=== PATIENT | female | born 1980 | race Caucasian/White ===

== ENCOUNTER 2017-10-13 19:18 | Emergency (ER) | payer OTHER ==
[~2017-10-13 19:18] MED LIST: IBUP-238; PREN0.01
[2017-10-13] MEDS ORDERED: MECL-62 PO (20:42)
[2017-10-13] MEDS ORDERED: ZITHTAB PO (20:42)
--- NOTE | 2017-10-13 20:42 | PD ---
HPI Chief Complaint Dizziness and abdominal cramping for 1 day Date Seen: Oct 13, 2017 Time Seen: 20:33 Travel History International Travel<30 Days: No Contact w/Intl Traveler<30Days: No Known Affected Area: No History of Present Illness HPI 37-year-old at [address] Cochran for care who presents complaining of dizziness for the last day, like she can have trouble walking she feels like she is to hold onto the wall or to something which she walks in the some extent the room is spinning, she says she has had this before in . Her abdominal cramping is minimal, was no bleeding or leakage of fluid, heart tones 140s, no contractions seen Weeks Gestation: 23 Para: 1 : 2 History Obstetric History Obstetric History 1 vaginal delivery Social History Alcohol Use: No Tobacco Use: No Substance Abuse: No Allergies-Medications (Allergen,Severity, Reaction): Coded Allergies: tinidazole (Verified Allergy, Severe, Hives, 10/13/17) Home Meds Reported Medications Ibuprofen (Motrin) 800 Mg Tab 06/04/07 Multivit/Min/Fol Ac/Iron/Pren ( Vit ( Plus)) Tab 06/02/07 Review of Systems General / Constitutional: No: Fever, Weight Gain, Chills, Other Eyes: No: Diploplia, Blurred Vision, Visual changes, Pain, Photophobia HENT: No: Headaches, Vertigo, Lightheadedness Cardiovascular: No: Irregular Rhythm, Chest Pain or Discomfort, Palpitations, Tachycardia, Syncope, Varicosities, Edema, Cyanosis Respiratory: No: Cough, Short of Breath, Other Gastrointestinal: Abdominal Pain, No: Nausea, Vomiting Genitourinary: No: Decreased Urinary Output, Oliguria Musculoskeletal: No: Limited ROM, Weakness, Cramping, Edema, Pain Skin: No Rash, No Itching, No Dryness, No Lumps, No Change in Pigmentation, No Change in Nails, No Alopecia, No Lesions Neurologic: Dizziness, No: Weakness, Syncope, Focal Abnormalities, Coordination Problem, Headache, Slurred Speech, Seizures Psychiatric: No: Depression, Suicidal Ideations, Homicidal Ideation Endocrine: No: Heat Intolerance, Cold Intolerance, Polydipsia, Polyuria, Other Physical Exam Narrative GENERAL: Well-nourished, well-developed patient. SKIN: Warm and dry. HEAD: Normocephalic and atraumatic. EYES: No scleral icterus. No injection or drainage. ENT: No nasal drainage noted. Mucous membranes pink. Airway patent. NECK: Supple, trachea midline. No JVD. CARDIOVASCULAR: Regular rate and rhythm without murmurs, gallops, or rubs. RESPIRATORY: Breath sounds equal bilaterally. No accessory muscle use. BREASTS: Bilateral exam showed no masses , no retractions, no nipple discharge. ABDOMEN/GI: Abdomen soft, non-tender, bowel sounds present, no rebound, no guarding Gravid to [23-] weeks size Fundal Height: [23-] GENITOURINARY: External Genitalia: intact and normal in appearance BUS glands: [-] Cervix: [post-] Dilatation: [0-] Effacement: [-0] Station: [-3] Membranes: [intact ] Uterine Contractions: [-none] FHT's: Category: [1-] Baseline: [-133] Reactive: [-R] Variability: [mod-] Decels: [-none] EXTREMITIES: No cyanosis or edema. BACK: Nontender without obvious deformity. No CVA tenderness. NEUROLOGICAL: Awake and alert. Motor and sensory grossly within normal limits. Five out of 5 muscle strength in all muscle groups. Normal speech. Data Data Labs OB ED urine dip negative MDM Interpretation(s) Patient is 37-year-old 23 weeks with a dizziness swelling and abdominal cramping, her exam is essentially negative will treat for potential labyrinthitis with a Z-Eber antibiotic and meclizine p.o., increase fluids, bed rest for the next 48 hours Plan Patient received a work release for 2 days she will trying to take her medications at home stay off her feet drink plenty of water use a heating pad if needed Diagnosis Diagnosis: Primary Impression: Dizzy spells Additional Impression: Abdominal cramping affecting Disposition: 01 DISCHARGE HOME Condition: Stable Scripts Meclizine (Meclizine) 25 Mg Tab 25 MG PO TID Y for VERTIGO for 10 Days, #30 TAB 0 Refills Prov: Keyshawn Chavis II, MD 10/13/17 Azithromycin (Zithromax Z-Eber) 250 Mg Dspk 250 MG PO DIRECTED for Infection, #1 DSPK 0 Refills 500 MG (2 tabs) day 1, then 1 tab days 2-5. Prov: Keyshawn Chavis II, MD 10/13/17 Patient Instructions: General Instructions, Nausea and Vomiting in ( ED), Labor (ED) Additional Instructions: DRINK PLENTY OF WATER DURING THE DAY, RETURN IF LEAKING FLUID, VAGINAL BLEEDING , STRONG CONTRACTIONS OR DECREASE IN MOVMENET. FOLLOW UP WITH YOUR OB DR IN AM AND KEEP ALL UPCOMING OB APPTS. Departure Forms: Work Release Enter return to work date: Oct 16, 2017 Special Instructions: GET PRESCRIPTION FILLED AND TAKE ALL OF YOUR PRESCRIBED MEDICATION AN DRINK PLENTY OF WATER DURING THE DAY. Keyshawn Chavis II, MD Oct 13, 2017 20:42
== END 2017-10-13 21:04 | disposition home or self-care (01) ==
LOC: HOBED 19:18
DX: O26.892 Other specified pregnancy related conditions, second trimester (principal); R42 Dizziness and giddiness; R10.9 Unspecified abdominal pain; Z3A.23 23 weeks gestation of pregnancy
CPT/HCPCS: 99284

== ENCOUNTER 2017-12-01 17:02 | Emergency (ER) | payer OTHER ==
[~2017-12-01 17:02] MED LIST changes: +MECL-62 PO; +ZITHTAB PO
--- NOTE | 2017-12-01 17:56 | PD ---
HPI Chief Complaint increased heart rate Date Seen: Dec 01, 2017 Time Seen: 17:51 Travel History International Travel<30 Days: No Contact w/Intl Traveler<30Days: No Known Affected Area: No History of Present Illness HPI pt. is a @ 30 weeks present as a referral from Dr. Cochran 09/18 tachycardia. pt. states was seen in office and increased heart rate was noted. +FM, no lof/vb, no ctxs. Weeks Gestation: 30 Para: 1 : 2 History Past Medical History Medical History: Denies Significant Hx Obstetric History Obstetric History , s/p x1 Past Surgical History Surgical History: No Previous Surgery Family History Family History: Negative Social History Alcohol Use: No Tobacco Use: No Substance Abuse: No Allergies-Medications (Allergen,Severity, Reaction): Coded Allergies: tinidazole (Verified Allergy, Severe, Hives, 10/13/17) Home Meds Active Scripts Meclizine (Meclizine) 25 Mg Tab, 25 MG PO TID Y for VERTIGO for 10 Days, #30 TAB 0 Refills Prov:Keyshawn Chavis II, MD 10/13/17 Azithromycin (Zithromax Z-Eber) 250 Mg Dspk, 250 MG PO DIRECTED for Infection , #1 DSPK 0 Refills 500 MG (2 tabs) day 1, then 1 tab days 2-5. Prov:Keyshawn Chavis II, MD 10/13/17 Reported Medications Ibuprofen (Motrin) 800 Mg Tab 06/04/07 Multivit/Min/Fol Ac/Iron/Pren ( Vit ( Plus)) Tab 06/02/07 Review of Systems Except as stated in HPI: all other systems reviewed are Neg Physical Exam Narrative GENERAL: Well-nourished, well-developed patient. SKIN: Warm and dry. HEAD: Normocephalic and atraumatic. EYES: No scleral icterus. No injection or drainage. ENT: No nasal drainage noted. Mucous membranes pink. Airway patent. NECK: Supple, trachea midline. No JVD. CARDIOVASCULAR: Regular rate and rhythm without murmurs, gallops, or rubs. RESPIRATORY: Breath sounds equal bilaterally. No accessory muscle use. ABDOMEN/GI: Abdomen soft, non-tender, bowel sounds present, no rebound, no guarding Gravid Uterine Contractions: - FHT's: Category: 1 Reactive: + Variability:mod EXTREMITIES: No cyanosis or edema. BACK: Nontender without obvious deformity. No CVA tenderness. NEUROLOGICAL: Awake and alert. Motor and sensory grossly within normal limits. Five out of 5 muscle strength in all muscle groups. Normal speech. Data Data Vital Signs Reviewed: Yes Orders Orders Optical Scientist Clear For Discharge (12/01/17 ) [facility] Medical Record Reviewed: Yes Plan fht rassuring. condition d/w pt. all ? answered. pt. to be d/c to home. given precautions for return. f/u as sched. Diagnosis Diagnosis: Primary Impression: tachycardia before the onset of labor Additional Impression: 30 weeks gestation of Disposition: DISCHARGE HOME Renny Steele Jr., MD Dec 01, 2017 17:56
== END 2017-12-01 17:56 | disposition home or self-care (01) ==
LOC: HOBED 17:02
DX: O76 Abnormality in fetal heart rate and rhythm complicating labor and delivery (principal); Z3A.30 30 weeks gestation of pregnancy
CPT/HCPCS: 99283

== ENCOUNTER 2018-01-20 03:09 | Inpatient (IN) | payer OTHER ==
[~2018-01-20] VITALS: Ht 162.6 cm; Wt 91.0 kg
--- NOTE | 2018-01-20 03:52 | HHI.HP ---
HPI Chief Complaint Water broke and cecilio Date Seen: Jan 20, 2018 Time Seen: 03:48 Travel History International Travel<30 Days: No Contact w/Intl Traveler<30Days: No Known Affected Area: No History of Present Illness HPI 37-year-old at 37 weeks presents with spontaneous rupture membranes. She goes to the [facility] clinic and sees Dr. Cochran. She has no complaint of bleeding. She is cecilio about every 6 minutes uncomfortably Weeks Gestation: 37 Para: 1 : 2 History Obstetric History Obstetric History 1 prior vaginal delivery Social History Alcohol Use: No Tobacco Use: No Substance Abuse: No Allergies-Medications (Allergen,Severity, Reaction): Coded Allergies: tinidazole (Verified Allergy, Severe, Hives, 10/13/17) Home Meds Active Scripts Meclizine (Meclizine) 25 Mg Tab, 25 MG PO TID Y for VERTIGO for 10 Days, #30 TAB 0 Refills Prov:Keyshawn Chavis II, MD 10/13/17 Azithromycin (Zithromax Z-Eber) 250 Mg Dspk, 250 MG PO DIRECTED for Infection , #1 DSPK 0 Refills 500 MG (2 tabs) day 1, then 1 tab days 2-5. Prov:Keyshawn Chavis II, MD 10/13/17 Reported Medications Ibuprofen (Motrin) 800 Mg Tab 06/04/07 Multivit/Min/Fol Ac/Iron/Pren ( Vit ( Plus)) Tab 06/02/07 Review of Systems General / Constitutional: No: Fever, Weight Gain, Chills, Other Eyes: No: Diploplia, Blurred Vision, Visual changes, Pain, Photophobia HENT: No: Headaches, Vertigo, Lightheadedness Cardiovascular: No: Irregular Rhythm, Chest Pain or Discomfort, Palpitations, Tachycardia, Syncope, Varicosities, Edema, Cyanosis Respiratory: No: Cough, Short of Breath, Other Gastrointestinal: Abdominal Pain, No: Nausea, Vomiting, Diarrhea Genitourinary: No: Decreased Urinary Output, Oliguria Musculoskeletal: No: Limited ROM, Weakness, Cramping, Edema, Pain Skin: No Rash, No Itching, No Dryness, No Lumps, No Change in Pigmentation, No Change in Nails, No Alopecia, No Lesions Neurologic: No: Weakness, Dizziness, Syncope, Focal Abnormalities, Coordination Problem, Headache, Slurred Speech, Seizures Psychiatric: No: Depression, Suicidal Ideations, Homicidal Ideation Endocrine: No: Heat Intolerance, Cold Intolerance, Polydipsia, Polyuria, Other Physical Exam Narrative GENERAL: Well-nourished, well-developed patient. SKIN: Warm and dry. HEAD: Normocephalic and atraumatic. EYES: No scleral icterus. No injection or drainage. ENT: No nasal drainage noted. Mucous membranes pink. Airway patent. NECK: Supple, trachea midline. No JVD. CARDIOVASCULAR: Regular rate and rhythm without murmurs, gallops, or rubs. RESPIRATORY: Breath sounds equal bilaterally. No accessory muscle use. BREASTS: Bilateral exam showed no masses , no retractions, no nipple discharge. ABDOMEN/GI: Abdomen soft, non-tender, bowel sounds present, no rebound, no guarding Gravid to [37-] weeks size Fundal Height: [37-] GENITOURINARY: External Genitalia: intact and normal in appearance BUS glands: [-] Cervix: [post-] Dilatation: [0-] Effacement: [50-] Station: [-3] Presentation: [vtx-] Membranes: [ ruptured] Uterine Contractions: [reg q 6 min-] FHT's: Category: [1-] Baseline: [133-] Reactive: [-R] Variability: [-mod] Decels: [-0] EXTREMITIES: No cyanosis or edema. BACK: Nontender without obvious deformity. No CVA tenderness. NEUROLOGICAL: Awake and alert. Motor and sensory grossly within normal limits. Five out of 5 muscle strength in all muscle groups. Normal speech. Caprini VTE Risk Assessment Caprini VTE Risk Assessment: No/Low Risk (score <= 1) Caprini Risk Assessment Model Point Value = 1 Point Value = 2 Point Value = 3 Point Value = 5 Age 41-60 Minor surgery BMI > 25 kg/m2 Swollen legs Varicose veins or History of unexplained or recurrent spontaneous Oral contraceptives or hormone replacement Sepsis (< 1 month) Serious lung disease, including pneumonia (< 1 month) Abnormal pulmonary function Acute myocardial infarction Congestive heart failure (< 1 month) History of inflammatory bowel disease Medical patient at bed rest Age 61-74 Arthroscopic surgery Major open surgery (> 45 min) Laparoscopic surgery (> 45 min) Malignancy Confined to bed (> 72 hours) Immobilizing plaster cast Central venous access Age >= 75 History of VTE Family history of VTE Factor V Leiden Prothrombin [id number] Lupus anticoagulant Anticardiolipin antibodies Elevated serum homocysteine Heparin-induced thrombocytopenia Other congenital or acquired thrombophilia Stroke (< 1 month) Elective arthroplasty Hip, pelvis, or leg fracture Acute spinal cord injury (< 1 month) Prophylaxis Regimen Total Risk Factor Score Risk Level Prophylaxis Regimen 0-1 Low Early ambulation 2 Moderate Order ONE of the following: *Sequential Compression Device (SCD) *Heparin 5000 units SQ BID 3-4 Higher Order ONE of the following medications: *Heparin 5000 units SQ TID *Enoxaparin/Lovenox 40 mg SQ daily (WT < 150 kg, CrCl > 30 mL/min) *Enoxaparin/Lovenox 30 mg SQ daily (WT < 150 kg, CrCl > 10-29 mL/min) *Enoxaparin/Lovenox 30 mg SQ BID (WT < 150 kg, CrCl > 30 mL/min) AND/OR *Sequential Compression Device (SCD) 5 or more Highest Order ONE of the following medications: *Heparin 5000 units SQ TID (Preferred with Epidurals) *Enoxaparin/Lovenox 40 mg SQ daily (WT < 150 kg, CrCl > 30 mL/min) *Enoxaparin/Lovenox 30 mg SQ daily (WT < 150 kg, CrCl > 10-29 mL/min) *Enoxaparin/Lovenox 30 mg SQ BID (WT < 150 kg, CrCl > 30 mL/min) AND *Sequential Compression Device (SCD) Data Data Group B Strep: Negative Assessment/Plan Assessment and Plan Patient is 37-year-old at 37 weeks with gross rupture membranes, with early contractions noted, cervix is closed Plan--admit to labor and delivery, managed augment labor as needed, and anticipate vaginal delivery Keyshawn Chavis II, MD Jan 20, 2018 03:52
[2018-01-20] MEDS ORDERED: LACTATED RINGER'S 1000 ML INJ 1,000 ML IV SCH (03:53)
[2018-01-20] MEDS ORDERED: LIDOCAINE HCL 1% 50 ML VIAL I-DERMAL PRN (04:00)
[2018-01-20] MEDS ORDERED: LIDOCAINE HCL 1% 50 ML VIAL INFIL PRN (04:00)
[2018-01-20] MEDS ORDERED: CITRIC ACID-SODIUM CITRATE LIQ 30 ML UDC PO SCH (04:00)
[2018-01-20] MEDS ORDERED: OXYTOCIN 30 UNITS-500ML PREMIX 500 ML IV ONE (04:00)
[2018-01-20] MEDS ORDERED: MINERAL OIL 10 ML VIAL TOPICAL PRN (04:00)
[2018-01-20] MEDS ORDERED: SODIUM CHLORID 0.9% 500 ML INJ 500 ML IV PRN (04:00)
[2018-01-20] MEDS ORDERED: SODIUM CHLOR 0.9% 1000 ML INJ 1,000 ML IV PRN (04:13)
[2018-01-20 04:32] LABS: AUTOMATED NEUTROPHIL # 5.8 TH/MM3 (1.8-7.7); BASOPHIL % 0.3 % (0.0-2.0); EOSINOPHIL # 0.2 TH/MM3 (0-0.4); EOSINOPHIL % 2.3 % (0.0-4.0); HEMATOCRIT 34.8 % (35.0-46.0); HEMOGLOBIN 11.8 GM/DL (11.6-15.3); LYMPH % 14.6 % (9.0-44.0); LYMPHOCYTE # 1.1 TH/MM3 (1.0-4.8); MEAN CELL VOLUME 90.1 FL (80.0-100.0); MEAN CORPUSCULAR HEMOGLOBIN 30.4 PG (27.0-34.0); MEAN CORPUSCULAR HGB CONC 33.8 % (32.0-36.0); MEAN PLATELET VOLUME 8.1 FL (7.0-11.0); MONO % 8.9 % (0.0-8.0); MONOCYTE # 0.7 TH/MM3 (0-0.9); NEUT % 73.9 % (16.0-70.0); PLATELET COUNT 232 TH/MM3 (150-450); RED BLOOD COUNT 3.86 MIL/MM3 (4.00-5.30); RED CELL DISTRIBUTION WIDTH 16.1 % (11.6-17.2); WHITE BLOOD COUNT 7.8 TH/MM3 (4.0-11.0)
[2018-01-20 04:45] LABS: BACTERIA, URINE MOD /hpf; BILIRUBIN, URINE NEG (NEG); BLOOD, URINE LARGE (NEG); GLUCOSE,URINE NEG (NEG); KETONE, URINE NEG (NEG); MUCUS URINE FEW /lpf (OCC); NITRITE,URINE NEG (NEG); SQUAMOUS EPITHELIAL CELL URINE 24 /hpf (0-5); URINE COLOR YELLOW (YELLW/STRAW); URINE LEUKOCYTE ESTERASE MOD (NEG); WHITE BLOOD CELL CLUMPS OCC
[2018-01-20] MEDS ORDERED: PSEUDOEPHEDRINE HCL 30 MG TAB PO ONE (05:00)
[2018-01-20 05:21] LABS: BANDS 2 % (0-6); CORRECTED NUCLEATED RBC 1 /100 WBC (0-0); LYMPHOCYTES 12 % (9-44); MONOCYTES 6 % (0-8); NEUTROPHIL # MANUAL DIFF 6.3 TH/MM3 (1.8-7.7); NUCLEATED RED BLOOD CELL 1 (0-0); POLYS (SEG NEUTROPHILS) 79 % (16-70)
[2018-01-20] MEDS ORDERED: OXYTOCIN 30 UNITS/NS 500ML PREMIX IV PRN (07:45)
[2018-01-20] MEDS: LACTATED RINGER'S 1000 ML INJ 1,000 ML IV PRN ×2 (07:52→09:43)
[2018-01-20] MEDS ORDERED: fentaNYL 2MCG-BUPIV 0.125% INJ 150 ML EPIDURAL ONE (09:06)
[2018-01-20] MEDS ORDERED: ePHEDrine/NS 25 MG/5 ML SYRINGE ONE (09:07)
[2018-01-20] MEDS ORDERED: LIDOCAINE 1.5%/EPINEPHrine 1:200,000 PF 5 ML AMP ONE (09:13)
[2018-01-20] MEDS ORDERED: DO NOT ADMINISTER ANTICOAGULANTS PRN (10:30)
[2018-01-20] MEDS ORDERED: fentaNYL 2MCG-BUPIV 0.125% 150 ML EPIDURAL PRN (10:30)
[2018-01-20] MEDS ORDERED: ePHEDrine/NS 25 MG/5 ML SYRINGE IV PUSH PRN (10:30)
[2018-01-20] MEDS ORDERED: NO SYSTEM NARCOTICS PRN (10:30)
--- NOTE | 2018-01-20 14:56 | PD.OB.DELI ---
Weeks gestation: 37 Gest age assessed date: Jan 20, 2018 Gest age assessed time: 04:00 Active labor start date: Jan 20, 2018 Active labor start time: 04:00 Medical induction of labor?: No Artificial rupture of membrane: No Anesthesia: Epidural Episiotomy: None Vaginal Delivery: Normal Presentation: Occiput anterior Nuchal Cord: None Delayed cord clamping (45 sec): Yes Infant: Female Delivery date: Jan 20, 2018 Delivery time: 14:44 One Minute : 8 Five Minute : 9 Placenta: Spontaneous delivery Laceration: Vaginal laceration, 1 deg (small, superficial midline) Repair: Vicryl Miguel Harry MD Jan 20, 2018 14:56
[2018-01-20] MEDS ORDERED: OXYTOCIN 10 UNIT/ML AMP XX PRN (15:00)
[2018-01-20] MEDS ORDERED: ACETAMINOPHEN 325 MG TAB PO PRN (15:00)
[2018-01-20] MEDS ORDERED: SODIUM CHLORIDE 0.9% FLUSH 10 ML FLUSH IV FLUSH SCH (15:00)
[2018-01-20] MEDS ORDERED: WITCH HAZEL 50%/GLYCERIN 12.5% 40 PAD JAR TOPICAL PRN (15:00)
[2018-01-20] MEDS ORDERED: BENZOCAINE 20% TOPICAL SPRAY 60 ML CAN TOPICAL PRN (15:00)
[2018-01-20] MEDS ORDERED: ZOLPIDEM TARTRATE 5 MG TAB PO PRN (15:00)
[2018-01-20] MEDS ORDERED: ALUMINUM/MAGNESIUM/SIMETH 30 ML CUP PO PRN (15:00)
[2018-01-20] MEDS ORDERED: OXYTOCIN 30 UNITS-500ML PREMIX 500 ML IV SCH (15:00)
[2018-01-20] MEDS ORDERED: ONDANSETRON ODT 4 MG TAB PO PRN (15:00)
[2018-01-20] MEDS ORDERED: SODIUM CHLORIDE 0.9% FLUSH 10 ML FLUSH IV FLUSH PRN (15:00)
[2018-01-20] MEDS ORDERED: MEASLES, MUMPS, RUBELLA VACCINE 0.5 ML VIAL SQ ONE (16:00)
[2018-01-20] MEDS ORDERED: DIPHTH/TETANUS/ACEL PERTUSSIS (BOOSTER) 0.5 ML VIAL/PFS IM ONE (16:00)
[2018-01-20] MEDS: IBUPROFEN 800 MG TAB PO PRN (17:22)
[2018-01-20 20:04] VITALS: BP 141/79; PULSE 106; RESP 18; TEMP 99.3
[2018-01-20] MEDS: DOCUSATE SODIUM 50 MG/SENNA 8.6 MG TAB PO PRN (21:03)
[2018-01-21] MEDS: IBUPROFEN 800 MG TAB PO PRN ×3 (01:43→19:59)
--- NOTE | 2018-01-21 06:57 | HHI.DCPOC ---
Discharge Care Plan Diagnosis: (1) 37 weeks gestation of (2) care following vaginal delivery Your Health Problems Are: Vaginal delivery Report Symptoms to Your Doctor -Temperature above 100.5 degrees -Redness, of incision or excessive or foul smelling drainage -Unusual pain or calf pain -Increased vaginal bleeding -Painful or difficulty urinating -Feelings of extreme sadness or anxiety after 2 weeks Goals to Promote Your Health * To prevent worsening of your condition and complications * To maintain your health at the optimal level Directions to Meet Your Goals Take your medications as prescribed Follow your dietary instruction Follow activity as directed Ensure plenty of rest for recovery Drink fluids for hydration Keep your appointments as scheduled Take your immunizations and boosters as scheduled If your symptoms worsen call your PCP, if no PCP go to Urgent Care Center or Emergency Room Smoking is Dangerous to Your Health. Avoid second hand smoke Call the 24-hour crisis hotline for domestic abuse at Stephan Ireland MD Jan 21, 2018 06:57
--- NOTE | 2018-01-21 08:00 | HHI.OB ---
Subjective Post Day: 1 Remarks Doing well, pain controlled, vaginal bleeding less than menses, no complaints, denies headache, visual changes, epigastric pain or right upper quadrant pain. Objective Vitals/I&O Vital Signs Date Time Temp Pulse Resp B/P (MAP) Pulse Ox O2 Delivery O2 Flow Rate FiO2 01/20/18 20:04 99.3 106 18 141/79 (99) Objective Remarks GENERAL: Well-nourished, well-developed patient. CARDIOVASCULAR: Regular rate and rhythm without murmurs, gallops, or rubs. RESPIRATORY: Breath sounds equal bilaterally. No accessory muscle use. ABDOMEN/GI: Abdomen soft, non-tender. Fundus: Firm, non-tender at umbilicus. GENITOURINARY: Light to moderate bleeding. EXTREMITIES: No cyanosis or edema, non-tender, without signs of DVT. Medications and IVs Current Medications Medications (Trade) Dose Ordered Sig/Swathi Route Start Time Stop Time Status Last Admin Lactated Ringer's 1,000 ml @ 125 mls/hr Q8H IV 01/20/18 03:53 01/20/18 04:36 Lactated Ringer's 1,000 ml @ 3,000 mls/hr Q20M PRN IV 01/20/18 03:53 01/20/18 09:43 Sodium Chloride 500 ml @ 1,000 mls/hr ONCE PRN IV 01/20/18 04:00 01/22/18 03:59 Sodium Chloride 1,000 ml @ 100 mls/hr Q10H PRN IV 01/20/18 04:13 (Xylocaine 1% Inj (50 ml)) 0.1 ml UNSCH X1 PRN I-DERMAL 01/20/18 04:00 01/23/18 03:59 (Bicitra Liq) 30 ml MACHINIST/MACHINE BUILDER PO 01/20/18 04:00 01/24/18 03:59 (fentaNYL INJ) 50 mcg Q1H PRN IV PUSH 01/20/18 04:00 (fentaNYL INJ) 100 mcg Q1H PRN IV PUSH 01/20/18 04:00 (Xylocaine 1% Inj (50 ml)) 10 ml UNSCH X1 PRN INFIL 01/20/18 04:00 01/22/18 03:59 (Muri-Lube Oil) 10 ml UNSCH PRN TOPICAL 01/20/18 04:00 Oxytocin 500 ml @ 0 mls/hr TITRATE PRN IV 01/20/18 07:45 01/20/18 07:54 ([facility] [place] [facility]) No systemic narcotics to be given except... UNSCH PRN .XX 01/20/18 10:30 01/21/18 10:29 ([facility] [place] [facility]) DO NOT ADMINISTER ANY ANTICOAGUL... UNSCH PRN .XX 01/20/18 10:30 01/21/18 10:29 Fentanyl/ Bupivacaine/ Sodium Chlor 150 ml @ 0 mls/hr TITRATE PRN EPIDURAL 01/20/18 10:30 (ePHEDrine/NS 25 MG/5 ML SYR) 10 mg UNSCH PRN IV PUSH 01/20/18 10:30 01/21/18 10:29 01/20/18 10:25 (Pitocin Inj) 20 units UNSCH X1 PRN XX 01/20/18 15:00 01/21/18 14:59 (NS Flush) 2 ml BID IV FLUSH 01/20/18 15:00 (NS Flush) 2 ml UNSCH PRN IV FLUSH 01/20/18 15:00 (Tylenol) 650 mg Q4H PRN PO 01/20/18 15:00 (Motrin) 800 mg Q8H PRN PO 01/20/18 15:00 01/21/18 01:43 (Americaine 20% Top Spr) 1 spray Q4H PRN TOPICAL 01/20/18 15:00 (Tucks Pads) 1 applic QID PRN TOPICAL 01/20/18 15:00 (Hazel-Colace) 2 tab Q12H PRN PO 01/20/18 15:00 01/20/18 21:03 (Ambien) 5 mg HS PRN PO 01/20/18 15:00 (Mag-Al Plus Susp Liq) 15 ml Q8H PRN PO 01/20/18 15:00 (Zofran Odt) 4 mg Q6H PRN PO 01/20/18 15:00 Assessment/Plan Assessment and Plan 37-year-old 002 as opposed at 37 weeks and 1 day. 1. day #1: Afebrile, vital signs stable, likely discharge home in the next 24 hours. Discussed precautions, expectations and follow- up. 2. Elevated blood pressure: She has no signs or symptoms of preeclampsia, no hx of GHTN or PREC, no work up done on admission, mostly normotensive, discussed preeclampsia precautions and need to call the office or present to the hospital if these occur Stephan Ireland MD Jan 21, 2018 08:00
[2018-01-21] MEDS: DOCUSATE SODIUM 50 MG/SENNA 8.6 MG TAB PO PRN (19:59)
[2018-01-21 20:19] VITALS: BP 140/82; PULSE 82; RESP 19; TEMP 98.4
[2018-01-22] MEDS: IBUPROFEN 800 MG TAB PO PRN (07:15)
--- NOTE | 2018-01-22 08:50 | HHI.OB ---
Subjective Post Day: 2 Remarks doing well with nursing and ready for discharge no complaints lochia appropriate Objective Vitals/I&O Vital Signs Date Time Temp Pulse Resp B/P (MAP) Pulse Ox O2 Delivery O2 Flow Rate FiO2 01/21/18 20:19 98.4 82 19 140/82 (101) Objective Remarks GENERAL: Well-nourished, well-developed patient. CARDIOVASCULAR: Regular rate and rhythm without murmurs, gallops, or rubs. RESPIRATORY: Breath sounds equal bilaterally. No accessory muscle use. ABDOMEN/GI: Abdomen soft, non-tender. Fundus: Firm, non-tender at umbilicus. GENITOURINARY: Light to moderate bleeding. EXTREMITIES: No cyanosis or edema, non-tender, without signs of DVT. Medications and IVs Current Medications Medications (Trade) Dose Ordered Sig/Swathi Route Start Time Stop Time Status Last Admin Lactated Ringer's 1,000 ml @ 125 mls/hr Q8H IV 01/20/18 03:53 01/20/18 04:36 Lactated Ringer's 1,000 ml @ 3,000 mls/hr Q20M PRN IV 01/20/18 03:53 01/20/18 09:43 Sodium Chloride 1,000 ml @ 100 mls/hr Q10H PRN IV 01/20/18 04:13 (Xylocaine 1% Inj (50 ml)) 0.1 ml UNSCH X1 PRN I-DERMAL 01/20/18 04:00 01/23/18 03:59 (Bicitra Liq) 30 ml NET APPLICATION SUPPORT SPECIALIST PO 01/20/18 04:00 01/24/18 03:59 (fentaNYL INJ) 50 mcg Q1H PRN IV PUSH 01/20/18 04:00 (fentaNYL INJ) 100 mcg Q1H PRN IV PUSH 01/20/18 04:00 (Muri-Lube Oil) 10 ml UNSCH PRN TOPICAL 01/20/18 04:00 Oxytocin 500 ml @ 0 mls/hr TITRATE PRN IV 01/20/18 07:45 01/20/18 07:54 Fentanyl/ Bupivacaine/ Sodium Chlor 150 ml @ 0 mls/hr TITRATE PRN EPIDURAL 01/20/18 10:30 (NS Flush) 2 ml BID IV FLUSH 01/20/18 15:00 (NS Flush) 2 ml UNSCH PRN IV FLUSH 01/20/18 15:00 (Tylenol) 650 mg Q4H PRN PO 01/20/18 15:00 (Motrin) 800 mg Q8H PRN PO 01/20/18 15:00 01/22/18 07:15 (Americaine 20% Top Spr) 1 spray Q4H PRN TOPICAL 01/20/18 15:00 (Tucks Pads) 1 applic QID PRN TOPICAL 01/20/18 15:00 (Hazel-Colace) 2 tab Q12H PRN PO 01/20/18 15:00 01/21/18 19:59 (Ambien) 5 mg HS PRN PO 01/20/18 15:00 (Mag-Al Plus Susp Liq) 15 ml Q8H PRN PO 01/20/18 15:00 (Zofran Odt) 4 mg Q6H PRN PO 01/20/18 15:00 Assessment/Plan Assessment and Plan 37-year-old 002 as opposed at 37 weeks and 1 day. 1. day #1: Afebrile, vital signs stable, likely discharge home in the next 24 hours. Discussed precautions, expectations and follow- up. 2. Elevated blood pressure: She has no signs or symptoms of preeclampsia, no hx of GHTN or PREC, no work up done on admission, mostly normotensive, discussed preeclampsia precautions and need to call the office or present to the hospital if these occur 01/22/18 PPD 1 BP 82 diastolic but assymptomatic ready for discharge discussed post depression, BP elevations, increased risk of DVT will follow up in 2 weeks or prn Nury Jones MD Jan 22, 2018 08:50
== END 2018-01-22 13:59 | disposition home or self-care (01) | DRG 774 ==
LOC: HOBED 03:09 → H2EA 03:51 → H1EA 16:26
PROVIDERS: ADMIT Obstetrics & Gynecology; ATTEND Obstetrics & Gynecology
PROC: 10E0XZZ Delivery of Products of Conception, External Approach (ICD-10-PCS; principal; 2018-01-20)
PROC: 0HQ9XZZ Repair Perineum Skin, External Approach (ICD-10-PCS; 2018-01-20)
PROC: 3E0R3BZ Introduction of Anesthetic Agent into Spinal Canal, Percutaneous Approach (ICD-10-PCS; 2018-01-20)
PROC: 00HU33Z Insertion of Infusion Device into Spinal Canal, Percutaneous Approach (ICD-10-PCS; 2018-01-20)
DX: O70.0 First degree perineal laceration during delivery (principal); O90.89 Other complications of the puerperium, not elsewhere classified; R03.0 Elevated blood-pressure reading, without diagnosis of hypertension; Z37.0 Single live birth; Z3A.37 37 weeks gestation of pregnancy
CPT/HCPCS: 80307; 81001; 85007; 85027; 86900; 86901; 87086; G0481; J2590; J7120